=== PATIENT | female | born 1990 | race Caucasian/White ===

== ENCOUNTER 2017-07-28 14:29 | Emergency (ER) | payer SELFPAY ==
[2017-07-28 14:41] VITALS: RESP 16; TEMP 98.4; O2SAT 96
[2017-07-28] MEDS ORDERED: SUMAtriptan 6 MG/0.5 ML VIAL SC ONE (15:15)
--- NOTE | 2017-07-28 15:19 | EDPHY ---
H & P Time Seen by Provider: 07/28/17 14:56 HPI/ROS: This patient presents with migraine headache. She recently moved here from [place] and ran out of her Imitrex that usually works well for her for her migraines. This particular headache started at 10:45 a.m. and is described as by cranial squeezing pain 8/10 peak intensity associated with some tingling in her left finger tips. The pain worsens with movement. She tried ibuprofen 600 mg at 10:45 a.m. without significant improvement and notes no other exacerbating factors. This headache is similar to prior headaches. She has had finger tingling in the past as a part of her migraine syndromes. She reports associated photophobia today that is mild. ROS: No high fevers or chills. No other constitutional symptoms HEENT: No URI symptoms. No sore throat. No sinus pain. Pulmonary: No cough shortness of breath Cardiovascular: No complaints GI: No nausea or vomiting Integumentary: No rash : She reports mild vaginal discharge consistent with prior yeast infections over the past 2 days. No urinary symptoms. No other complaints. Her last menstrual period was normal timing on 07/13/2017. Endocrine: No complaints Psychiatric: No complaints 10 point ROS is otherwise negative. Past Medical/Surgical History: Migraine headaches with a normal recent head CT and MRI of the brain in [place] per patient's verbal report. Social History: She denies any drug use. She uses Occasional alcohol. Smoking Status: Heavy smoker Physical Exam: Physical exam: Vital signs are normal General: Patient is in no acute distress. HEENT: Is no external evidence of trauma on exam. Eyes: Pupils are equal and reactive to light. Extraocular motions are intact. Optic fundi: Clear with no papilledema or hemorrhage. Nose atraumatic. Ears: Clear bilaterally with no hemotympanum. Oropharynx: No dental trauma or malocclusion. No intraoral lacerations. Eyes: Pupils are equal and reactive to light. Extraocular motions are intact. Optic fundi: Clear with no papilledema or hemorrhage. Lungs: Clear to auscultation bilaterally Neck: Supple no meningismus. Cardiac: Regular rate and rhythm no murmur gallop or rub. Abdomen: Soft nontender no organomegaly Neuro: GCS of 15. Cranial nerves II through XII intact. Cerebellar exam is normal as judged by symmetric rapid hand movements bilaterally. No pronator drift. No sensory or motor deficits are appreciated. Initial differential diagnosis: Migraine, tension headache, INSOLE REINFORCER lesion, intracranial bleed Constitutional: Initial Vital Signs Temperature (C) 36.9 C 07/28/17 14:35 Heart Rate 88 07/28/17 14:35 Respiratory Rate 16 07/28/17 14:35 Blood Pressure 118/88 H 07/28/17 14:35 O2 Sat (%) 96 07/28/17 14:35 O2 Delivery Mode Room Air Allergies/Adverse Reactions: No Known Allergies Allergy (Unverified 07/28/17 14:41) Home Medications: Medication Instructions Recorded Fluconazole [Diflucan] 150 mg PO ONCE #2 tablet 07/28/17 SUMAtriptan [Imitrex 50 MG (RX)] 50 - 100 mg PO Q2H PRN #12 tab 07/28/17 MDM/Departure - MDM Medications Given: Discontinued Medications Sumatriptan Succinate (Imitrex Sc Injection) 6 mg SC EDNOW ONE Stop: 07/28/17 15:16 Last Admin: 07/28/17 15:30 Dose: 6 mg ED Course/Re-evaluation: Imitrex subcu with significant improvement in her headache. I counseled patient regarding migraines. He arranged for outpatient follow up with Dr. Cho. Discussion: Patient with history of classic migraines presents with migraine without red flag findings that would suggest INSOLE REINFORCER infection, intracranial bleed or other concerning findings. She however understands the need to return emergency department should she have any worsening of her symptoms despite the treatment plan. - Depart Disposition: Home, Routine, Self-Care Clinical Impression: Migraine, Vaginal yeast infection Condition: Good Instructions: Migraine Headache (ED) Additional Instructions: Diagnosis: Migraine 2. yeast infection Plan: For now, home to rest. Drink plenty fluids Ibuprofen and Imitrex if needed for headaches. Diflucan for yeast if needed Follow-up with primary care physician for any ongoing symptoms despite treatment plan Return to the emergency department for any significant worsening despite the treatment plan Prescriptions: Fluconazole [Diflucan] 150 mg PO ONCE #2 tablet SUMAtriptan [Imitrex 50 MG (RX)] 50 - 100 mg PO Q2H PRN #12 tab PRN Reason: migraine Referrals: NONE *PRIMARY CARE P,. [Primary Care Provider] - As per Instructions Angelina Cho MD [Medical Doctor] - As per Instructions
[2017-07-28 15:57] VITALS: BP 120/84; PULSE 84
== END 2017-07-28 15:55 | disposition home or self-care (01) ==
LOC: CED 14:29
DX: G43.909 Migraine, unspecified, not intractable, without status migrainosus (principal); B37.3 Candidiasis of vulva and vagina; F17.200 Nicotine dependence, unspecified, uncomplicated
CPT/HCPCS: J3030